=== PATIENT | female | born 1955 | race Hispanic/Latino ===

== ENCOUNTER → 2019-01-10 | Outpatient (CLI) | payer OTHER | END | disposition home or self-care (01) | LOC: OIH 14:03 | PROVIDERS: ATTEND Internal Medicine | DX: Z13.6 Encounter for screening for cardiovascular disorders (principal) | CPT/HCPCS: 75571 ==

== ENCOUNTER → 2025-02-15 | Outpatient (CLI) | payer MEDICARE ==
--- NOTE | 2025-02-15 14:46 | HMCIMG ---
Exam Type: US TRANSVAGINAL NON-OB Clinical Information: VAG BLEEDING Comparison: None Findings: Uterus is anteverted and atrophic and the endometrium is irregular with thick tissue material, much more than expected for a patient of this age. Ovaries are not visualized. IMPRESSION: Abnormal endometrium. Consider direct visualization and tissue diagnosis.
== END | disposition home or self-care (01) ==
LOC: RAH 13:33
PROVIDERS: ATTEND Internal Medicine
DX: N93.9 Abnormal uterine and vaginal bleeding, unspecified (principal); N95.0 Postmenopausal bleeding
CPT/HCPCS: 76830